=== PATIENT | male | born 1955 | race Caucasian/White ===

== ENCOUNTER 2021-05-23 15:24 | Inpatient (IN) | payer MEDICARE, OTHER ==
[~2021-05-23] VITALS: Ht 154.9 cm; Wt 54.9 kg
[2021-05-23] MEDS ORDERED: MAGNESIUM HYDROXIDE 30 ML LIQUID UDC PO PRN (17:00)
[2021-05-23] MEDS ORDERED: MAG HYDROX/AL HYDROX/SIMETH 30 ML LIQUID UDC PO PRN (17:00)
[2021-05-23] MEDS ORDERED: BLOOD SUGAR DIAGNOSTIC 1 EACH STRIP VI ONE (17:00)
[2021-05-23] MEDS ORDERED: LORAZEPAM 0.5 MG TABLET PO PRN (17:00)
[2021-05-23 17:30] VITALS: BP 134/84
[2021-05-23 20:12] VITALS: BP 125/86
[2021-05-23] MEDS: TEMAZEPAM 7.5 MG CAPSULE PO PRN (20:35)
[2021-05-23] MEDS ORDERED: HALOPERIDOL LACTATE 5 MG/1 ML VIAL IM STA (23:14)
[2021-05-23] MEDS ORDERED: diphenhydrAMINE 50 MG/1 ML VIAL IM STA (23:14)
[2021-05-23] MEDS ORDERED: LORAZEPAM 2 MG/1 ML VIAL IM STA (23:14)
[2021-05-23] MEDS ORDERED: LEVE500T9 PO (23:34)
[2021-05-23] MEDS ORDERED: LEVO150T8 PO (23:34)
[2021-05-23] MEDS ORDERED: OLAN20TA3 PO (23:34)
[2021-05-24] MEDS ORDERED: LORAZEPAM 0.5 MG TABLET PO PRN (05:00)
[2021-05-24] MEDS ORDERED: levETIRAcetam 500 MG TABLET PO SCH ×2 (05:40)
[2021-05-24] MEDS: LEVOTHYROXINE SODIUM 150 MCG TABLET PO SCH (07:39)
[2021-05-24 07:45] VITALS: BP 108/70
[2021-05-24] MEDS: LORAZEPAM 1 MG TABLET PO PRN ×3 (08:15→19:48)
[2021-05-24] MEDS: levETIRAcetam 500 MG TABLET PO SCH ×2 (08:16→20:22)
[2021-05-24 08:30] LABS: HEMATOCRIT 34.1 % (36.7-47.1); MEAN CORPUSCULAR HEMOGLOBIN 27.8 uug (23.8-33.4); MEAN CORPUSCULAR VOLUME 84.4 fL (73.0-96.2); PLATELET COUNT (AUTO) 270 K/uL (152-348)
[2021-05-24 08:39] LABS: CREATININE 0.7 mg/dL (0.6-1.3); MAGNESIUM 1.8 mg/dL (1.8-2.4); PHOSPHOROUS 4.7 mg/dL (2.5-4.9); POTASSIUM 3.8 mmol/L (3.5-5.1)
[2021-05-24 09:05] LABS: THYROID STIMULATING HORMONE 9.104 mIU/mL (0.358-3.740)
[2021-05-24] MEDS ORDERED: HALOPERIDOL LACTATE 5 MG/1 ML VIAL IM STA (09:30)
[2021-05-24] MEDS ORDERED: diphenhydrAMINE 50 MG/1 ML VIAL IM STA (09:30)
[2021-05-24] MEDS ORDERED: LORAZEPAM 2 MG/1 ML VIAL IM STA (09:30)
[2021-05-24] MEDS: ACETAMINOPHEN 325 MG TABLET PO PRN (15:16)
[2021-05-24 15:45] VITALS: BP 98/59
[2021-05-24 20:00] VITALS: BP 127/76
[2021-05-24] MEDS: BENZTROPINE MESYLATE 1 MG TABLET PO SCH (20:57)
[2021-05-24] MEDS ORDERED: HALOPERIDOL 1 MG TABLET PO SCH (21:00)
[2021-05-24] MEDS: DIVALPROEX 250 MG TABLET.DR PO SCH (21:39)
[2021-05-24] MEDS ORDERED: HALOPERIDOL 5 MG TABLET ONE (21:55)
[2021-05-24] MEDS: TEMAZEPAM 7.5 MG CAPSULE PO PRN (22:52)
[2021-05-25] MEDS: LEVOTHYROXINE SODIUM 150 MCG TABLET PO SCH (06:39)
[2021-05-25] MEDS: levETIRAcetam 500 MG TABLET PO SCH ×2 (09:15→20:27)
[2021-05-25] MEDS: DIVALPROEX 250 MG TABLET.DR PO SCH ×3 (09:15→16:19)
[2021-05-25] MEDS: LORAZEPAM 1 MG TABLET PO PRN ×2 (09:15→16:19)
[2021-05-25] MEDS: HALOPERIDOL 5 MG TABLET PO SCH ×3 (09:15→16:19)
[2021-05-25] MEDS: BENZTROPINE MESYLATE 1 MG TABLET PO SCH ×3 (09:15→16:19)
[2021-05-25] MEDS ORDERED: HALOPERIDOL LACTATE 5 MG/1 ML VIAL IM ONE (12:15)
[2021-05-25] MEDS ORDERED: diphenhydrAMINE 50 MG/1 ML VIAL IM ONE (12:15)
[2021-05-25] MEDS ORDERED: LORAZEPAM 2 MG/1 ML VIAL IM ONE (12:15)
[2021-05-25] MEDS: ACETAMINOPHEN 325 MG TABLET PO PRN (16:19)
[2021-05-25 18:00] VITALS: BP 122/72
[2021-05-25 19:09] LABS: *BILIRUBIN,URIN NEGATIVE (NEGATIVE); *BLOOD, URINE NEGATIVE (NEGATIVE); *COLOR,URINE YELLOW (YELLOW); *KETONES,URINE 2+ (NEGATIVE); *UROBILINOGEN,URINE 0.2 E.U./dl (NORMAL); LEUKOCYTE ESTERASE ,URINE TRACE (NEGATIVE); NITRITE, URINE NEGATIVE (NEGATIVE); UGLUCOSE NEGATIVE (NEGATIVE)
[2021-05-25 19:16] LABS: *CLARITY,URINE SLIGHTLY HAZY (CLEAR); RBC,URINE 0-3 /HPF (0-3)
[2021-05-25 19:17] LABS: BACTERIA,URINE NONE SEEN /HPF (NONE SEEN); SQUAMOUS EPITHELIAL CELL,UR FEW /HPF (NONE SEEN); URINE AMORPHOUS PHOSPHATES FEW /HPF
[2021-05-25 19:59] VITALS: BP 136/73
[2021-05-25] MEDS: TEMAZEPAM 7.5 MG CAPSULE PO PRN (20:27)
[2021-05-26] MEDS: LORAZEPAM 1 MG TABLET PO PRN ×2 (02:11→08:35)
[2021-05-26] MEDS: LEVOTHYROXINE SODIUM 150 MCG TABLET PO SCH (06:16)
[2021-05-26 07:30] VITALS: BP 121/73
[2021-05-26] MEDS: DIVALPROEX 250 MG TABLET.DR PO SCH ×3 (08:35→17:15)
[2021-05-26] MEDS: CLONAZEPAM 0.5 MG TABLET PO SCH ×2 (08:35→17:15)
[2021-05-26] MEDS: chlorproMAZINE 25 MG TABLET PO SCH ×3 (08:35→17:15)
[2021-05-26] MEDS: levETIRAcetam 500 MG TABLET PO SCH ×2 (08:35→21:23)
[2021-05-26 16:00] VITALS: BP 119/71
[2021-05-26] MEDS: CEphaleXIN 500 MG CAPSULE PO SCH (17:16)
[2021-05-26 20:00] VITALS: BP 116/74
[2021-05-26] MEDS: TEMAZEPAM 7.5 MG CAPSULE PO PRN (20:29)
[2021-05-27 07:30] VITALS: BP 98/60
[2021-05-27] MEDS: LORAZEPAM 1 MG TABLET PO PRN (09:27)
[2021-05-27] MEDS: chlorproMAZINE 25 MG TABLET PO SCH ×2 (09:27→18:07)
[2021-05-27] MEDS: DIVALPROEX 250 MG TABLET.DR PO SCH ×3 (09:27→18:07)
[2021-05-27] MEDS: CLONAZEPAM 0.5 MG TABLET PO SCH ×2 (09:27→18:08)
[2021-05-27] MEDS: LEVOTHYROXINE SODIUM 150 MCG TABLET PO SCH (09:28)
[2021-05-27] MEDS: CEphaleXIN 500 MG CAPSULE PO SCH ×2 (09:28→17:00)
[2021-05-27] MEDS: levETIRAcetam 500 MG TABLET PO SCH ×2 (09:30→21:17)
[2021-05-27] MEDS ORDERED: diphenhydrAMINE 50 MG/1 ML VIAL IM ONE (10:45)
[2021-05-27] MEDS ORDERED: LORAZEPAM 2 MG/1 ML VIAL IM ONE (10:45)
[2021-05-27] MEDS ORDERED: HALOPERIDOL LACTATE 5 MG/1 ML VIAL IM ONE (10:45)
[2021-05-27 16:35] VITALS: BP 120/77
[2021-05-27 20:00] VITALS: BP 83/58
[2021-05-27] MEDS: TEMAZEPAM 7.5 MG CAPSULE PO PRN (21:17)
[2021-05-28] MEDS: LEVOTHYROXINE SODIUM 150 MCG TABLET PO SCH (06:58)
[2021-05-28 07:30] VITALS: BP 111/65
[2021-05-28 07:37] LABS: THYROID STIMULATING HORMONE 8.39 mIU/mL (0.358-3.740)
[2021-05-28] MEDS: CLONAZEPAM 0.5 MG TABLET PO SCH ×2 (08:39→17:04)
[2021-05-28] MEDS: DIVALPROEX 250 MG TABLET.DR PO SCH ×3 (08:39→17:05)
[2021-05-28] MEDS: chlorproMAZINE 25 MG TABLET PO SCH ×3 (08:39→17:04)
[2021-05-28] MEDS: levETIRAcetam 500 MG TABLET PO SCH ×2 (08:39→20:02)
[2021-05-28] MEDS: CEphaleXIN 500 MG CAPSULE PO SCH ×2 (08:39→17:05)
[2021-05-28] MEDS: LORAZEPAM 1 MG TABLET PO PRN (15:22)
[2021-05-28 16:42] VITALS: BP 118/83
[2021-05-28 20:00] VITALS: BP 124/72
[2021-05-28] MEDS: TEMAZEPAM 7.5 MG CAPSULE PO PRN (21:25)
[2021-05-29] MEDS: LEVOTHYROXINE SODIUM 150 MCG TABLET PO SCH (06:08)
[2021-05-29] MEDS: chlorproMAZINE 25 MG TABLET PO SCH ×3 (08:08→17:12)
[2021-05-29] MEDS: levETIRAcetam 500 MG TABLET PO SCH ×2 (08:08→20:47)
[2021-05-29] MEDS: CEphaleXIN 500 MG CAPSULE PO SCH ×2 (08:09→17:10)
[2021-05-29] MEDS: CLONAZEPAM 0.5 MG TABLET PO SCH ×3 (08:09→17:11)
[2021-05-29] MEDS: DIVALPROEX 500 MG TABLET.DR PO SCH ×2 (08:10→20:47)
[2021-05-29 08:30] VITALS: BP 112/72
[2021-05-29] MEDS ORDERED: LORAZEPAM 2 MG/1 ML VIAL IM ONE (08:45)
[2021-05-29] MEDS ORDERED: diphenhydrAMINE 50 MG/1 ML VIAL IM ONE (08:45)
[2021-05-29] MEDS ORDERED: HALOPERIDOL LACTATE 5 MG/1 ML VIAL IM ONE (08:45)
[2021-05-29] MEDS: DIVALPROEX 250 MG TABLET.DR PO SCH (12:46)
[2021-05-29 16:18] VITALS: BP 114/78
[2021-05-29] MEDS: LORAZEPAM 1 MG TABLET PO PRN (19:31)
[2021-05-29 20:00] VITALS: BP 127/80
[2021-05-30] MEDS: LEVOTHYROXINE SODIUM 150 MCG TABLET PO SCH (06:35)
[2021-05-30] MEDS: ACETAMINOPHEN 325 MG TABLET PO PRN ×2 (07:15→16:17)
[2021-05-30] MEDS: LORAZEPAM 1 MG TABLET PO PRN ×3 (07:15→20:16)
[2021-05-30 07:45] VITALS: BP 109/77
[2021-05-30] MEDS: CEphaleXIN 500 MG CAPSULE PO SCH ×2 (08:38→17:03)
[2021-05-30] MEDS: chlorproMAZINE 25 MG TABLET PO SCH ×3 (08:38→17:02)
[2021-05-30] MEDS: DIVALPROEX 500 MG TABLET.DR PO SCH ×2 (08:38→20:07)
[2021-05-30] MEDS: levETIRAcetam 500 MG TABLET PO SCH ×2 (08:39→20:08)
[2021-05-30] MEDS: CLONAZEPAM 0.5 MG TABLET PO SCH ×3 (08:39→17:01)
[2021-05-30] MEDS: DIVALPROEX 250 MG TABLET.DR PO SCH (12:05)
[2021-05-30] MEDS ORDERED: LORAZEPAM 2 MG/1 ML VIAL IM ONE (13:15)
[2021-05-30] MEDS ORDERED: diphenhydrAMINE 50 MG/1 ML VIAL IM ONE (13:15)
[2021-05-30] MEDS ORDERED: HALOPERIDOL LACTATE 5 MG/1 ML VIAL IM ONE (13:15)
[2021-05-30 16:13] VITALS: BP 107/69
[2021-05-30 20:13] VITALS: BP 104/64
[2021-05-31] MEDS: TEMAZEPAM 7.5 MG CAPSULE PO PRN ×2 (01:55→20:26)
[2021-05-31] MEDS: LEVOTHYROXINE SODIUM 150 MCG TABLET PO SCH (06:23)
[2021-05-31] MEDS: CLONAZEPAM 0.5 MG TABLET PO SCH ×3 (09:11→16:53)
[2021-05-31] MEDS: levETIRAcetam 500 MG TABLET PO SCH ×2 (09:11→20:29)
[2021-05-31] MEDS: chlorproMAZINE 25 MG TABLET PO SCH ×3 (09:11→16:53)
[2021-05-31] MEDS: CEphaleXIN 500 MG CAPSULE PO SCH (09:12)
[2021-05-31] MEDS: DIVALPROEX 500 MG TABLET.DR PO SCH ×2 (09:12→20:25)
[2021-05-31] MEDS: ACETAMINOPHEN 325 MG TABLET PO PRN ×2 (12:08→20:25)
[2021-05-31] MEDS: LORAZEPAM 1 MG TABLET PO PRN ×2 (12:08→16:28)
[2021-05-31] MEDS: DIVALPROEX 250 MG TABLET.DR PO SCH (12:51)
[2021-05-31 16:19] VITALS: BP 110/71
[2021-05-31] MEDS ORDERED: chlorproMAZINE 25 MG TABLET PO SCH (17:00)
[2021-05-31] MEDS ORDERED: chlorproMAZINE 25 MG TABLET PO ONE (17:15)
[2021-05-31 20:00] VITALS: BP 106/68
[2021-06-01] MEDS: LORAZEPAM 1 MG TABLET PO PRN ×3 (06:48→15:20)
[2021-06-01] MEDS: LEVOTHYROXINE SODIUM 150 MCG TABLET PO SCH (06:48)
[2021-06-01] MEDS: ACETAMINOPHEN 325 MG TABLET PO PRN (06:48)
[2021-06-01 07:30] VITALS: BP 113/55
[2021-06-01] MEDS: CLONAZEPAM 0.5 MG TABLET PO SCH ×3 (08:29→17:11)
[2021-06-01] MEDS: DIVALPROEX 500 MG TABLET.DR PO SCH ×3 (08:29→17:10)
[2021-06-01] MEDS: chlorproMAZINE 25 MG TABLET PO SCH ×3 (08:29→17:10)
[2021-06-01] MEDS: levETIRAcetam 500 MG TABLET PO SCH ×2 (08:29→22:23)
[2021-06-01 16:00] VITALS: BP 122/70
[2021-06-01 20:00] VITALS: BP 119/74
[2021-06-01] MEDS: TEMAZEPAM 7.5 MG CAPSULE PO PRN (22:23)
[2021-06-02] MEDS: LEVOTHYROXINE SODIUM 150 MCG TABLET PO SCH (06:54)
[2021-06-02 07:50] VITALS: BP 98/64
[2021-06-02] MEDS: DIVALPROEX 500 MG TABLET.DR PO SCH ×3 (07:56→17:02)
[2021-06-02] MEDS: CLONAZEPAM 0.5 MG TABLET PO SCH ×3 (07:56→17:02)
[2021-06-02] MEDS: chlorproMAZINE 25 MG TABLET PO SCH ×3 (07:56→17:02)
[2021-06-02] MEDS: levETIRAcetam 500 MG TABLET PO SCH ×2 (07:57→20:04)
[2021-06-02 08:38] LABS: CREATININE 0.7 mg/dL (0.6-1.3); POTASSIUM 4.3 mmol/L (3.5-5.1)
[2021-06-02] MEDS: LORAZEPAM 1 MG TABLET PO PRN ×3 (10:02→23:28)
[2021-06-02 20:00] VITALS: BP 127/73
[2021-06-02] MEDS: TEMAZEPAM 7.5 MG CAPSULE PO PRN (20:54)
[2021-06-03] MEDS: LEVOTHYROXINE SODIUM 150 MCG TABLET PO SCH (06:30)
[2021-06-03 07:43] VITALS: BP 116/59
[2021-06-03] MEDS: DIVALPROEX 500 MG TABLET.DR PO SCH ×3 (08:45→17:55)
[2021-06-03] MEDS: chlorproMAZINE 25 MG TABLET PO SCH ×3 (08:45→17:54)
[2021-06-03] MEDS: levETIRAcetam 500 MG TABLET PO SCH ×2 (08:45→20:13)
[2021-06-03] MEDS: CLONAZEPAM 0.5 MG TABLET PO SCH ×3 (08:45→17:55)
[2021-06-03] MEDS: LORAZEPAM 1 MG TABLET PO PRN ×2 (10:15→17:55)
[2021-06-03] MEDS ORDERED: LORAZEPAM 2 MG/1 ML VIAL IM ONE (13:45)
[2021-06-03] MEDS ORDERED: chlorproMAZINE 50 MG/2 ML AMPUL IM ONE (13:45)
[2021-06-03 16:00] VITALS: BP 94/71
[2021-06-03 20:04] VITALS: BP 121/76
[2021-06-03] MEDS: OLANZAPINE 5 MG TABLET PO SCH (21:00)
[2021-06-03] MEDS: TEMAZEPAM 7.5 MG CAPSULE PO PRN (21:12)
[2021-06-04] MEDS: LEVOTHYROXINE SODIUM 150 MCG TABLET PO SCH (07:00)
[2021-06-04 08:00] VITALS: BP 107/71
[2021-06-04] MEDS ORDERED: LORAZEPAM 2 MG/1 ML VIAL IM ONE (08:45)
[2021-06-04] MEDS ORDERED: chlorproMAZINE 50 MG/2 ML AMPUL IM ONE (08:45)
[2021-06-04] MEDS: levETIRAcetam 500 MG TABLET PO SCH ×2 (09:03→20:24)
[2021-06-04] MEDS: DIVALPROEX 500 MG TABLET.DR PO SCH ×4 (09:04→20:56)
[2021-06-04] MEDS: CLONAZEPAM 0.5 MG TABLET PO SCH ×3 (09:04→17:23)
[2021-06-04] MEDS: OLANZAPINE 5 MG TABLET PO SCH ×2 (09:04→20:24)
[2021-06-04] MEDS: chlorproMAZINE 25 MG TABLET PO SCH ×3 (10:19→17:23)
[2021-06-04 15:56] VITALS: BP 120/73
[2021-06-04] MEDS: LORAZEPAM 1 MG TABLET PO PRN (20:51)
[2021-06-04 21:19] VITALS: BP 125/73
[2021-06-04] MEDS: TEMAZEPAM 7.5 MG CAPSULE PO PRN (22:17)
[2021-06-05] MEDS: LEVOTHYROXINE SODIUM 150 MCG TABLET PO SCH (06:14)
[2021-06-05] MEDS: LORAZEPAM 1 MG TABLET PO PRN ×2 (07:15→19:14)
[2021-06-05 07:30] VITALS: BP 111/82
[2021-06-05] MEDS ORDERED: OLANZAPINE 10 MG VIAL IM ONE (08:30)
[2021-06-05] MEDS ORDERED: CLONAZEPAM 0.5 MG TABLET PO SCH (09:00)
[2021-06-05] MEDS: DIVALPROEX 500 MG TABLET.DR PO SCH ×3 (09:00→19:50)
[2021-06-05] MEDS: levETIRAcetam 500 MG TABLET PO SCH ×2 (09:00→20:06)
[2021-06-05] MEDS: chlorproMAZINE 25 MG TABLET PO SCH ×3 (09:01→17:04)
[2021-06-05] MEDS: OLANZAPINE 5 MG TABLET PO SCH ×3 (09:02→17:05)
[2021-06-05] MEDS: CLONAZEPAM 1 MG TABLET PO SCH ×3 (09:07→17:05)
[2021-06-05 16:00] VITALS: BP 123/78
[2021-06-05 20:00] VITALS: BP 113/80
[2021-06-05] MEDS: TEMAZEPAM 7.5 MG CAPSULE PO PRN (21:03)
[2021-06-06] MEDS: LORAZEPAM 1 MG TABLET PO PRN ×2 (02:02→10:18)
[2021-06-06 07:30] VITALS: BP 134/72
[2021-06-06] MEDS: LEVOTHYROXINE SODIUM 150 MCG TABLET PO SCH (07:55)
[2021-06-06] MEDS: OLANZAPINE 5 MG TABLET PO SCH ×3 (08:07→16:19)
[2021-06-06] MEDS: chlorproMAZINE 25 MG TABLET PO SCH ×3 (08:07→16:18)
[2021-06-06] MEDS: DIVALPROEX 500 MG TABLET.DR PO SCH ×3 (08:08→21:36)
[2021-06-06] MEDS: levETIRAcetam 500 MG TABLET PO SCH ×2 (08:09→21:37)
[2021-06-06] MEDS: CLONAZEPAM 1 MG TABLET PO SCH ×3 (08:09→16:19)
[2021-06-06 16:00] VITALS: BP 108/65
[2021-06-06 20:43] VITALS: BP 109/66
[2021-06-06] MEDS ORDERED: OLANZAPINE 10 MG VIAL IM ONE (22:00)
[2021-06-07] MEDS: OLANZAPINE 5 MG TABLET PO SCH ×3 (09:06→17:38)
[2021-06-07] MEDS: chlorproMAZINE 25 MG TABLET PO SCH ×3 (09:06→17:38)
[2021-06-07] MEDS: DIVALPROEX 500 MG TABLET.DR PO SCH ×3 (09:06→20:18)
[2021-06-07] MEDS: CLONAZEPAM 1 MG TABLET PO SCH ×3 (09:07→17:38)
[2021-06-07] MEDS: LORAZEPAM 1 MG TABLET PO PRN ×2 (09:07→19:55)
[2021-06-07] MEDS: LEVOTHYROXINE SODIUM 150 MCG TABLET PO SCH (09:07)
[2021-06-07] MEDS: levETIRAcetam 500 MG TABLET PO SCH ×2 (09:08→20:18)
[2021-06-07] MEDS ORDERED: chlorproMAZINE 50 MG/2 ML AMPUL IM ONE (10:00)
[2021-06-07] MEDS ORDERED: LORAZEPAM 2 MG/1 ML VIAL IM ONE (10:00)
[2021-06-07 11:31] VITALS: BP 109/73
[2021-06-07 11:35] VITALS: BP 133/77
[2021-06-07 16:19] VITALS: BP 112/61
[2021-06-07] MEDS: ACETAMINOPHEN 325 MG TABLET PO PRN (19:55)
[2021-06-07] MEDS: TEMAZEPAM 7.5 MG CAPSULE PO PRN (21:09)
[2021-06-07 22:08] VITALS: BP 111/67
[2021-06-08] MEDS: LEVOTHYROXINE SODIUM 150 MCG TABLET PO SCH (06:31)
[2021-06-08] MEDS: chlorproMAZINE 25 MG TABLET PO SCH ×3 (08:26→17:50)
[2021-06-08] MEDS: CLONAZEPAM 1 MG TABLET PO SCH ×3 (08:27→17:51)
[2021-06-08] MEDS: LORAZEPAM 1 MG TABLET PO PRN ×3 (08:27→17:56)
[2021-06-08] MEDS: levETIRAcetam 500 MG TABLET PO SCH ×2 (08:27→20:54)
[2021-06-08] MEDS: DIVALPROEX 500 MG TABLET.DR PO SCH ×3 (08:27→20:54)
[2021-06-08] MEDS: LOXAPINE SUCCINATE 25 MG CAPSULE PO SCH ×3 (08:28→17:50)
[2021-06-08 09:09] VITALS: BP 115/65
[2021-06-08] MEDS ORDERED: chlorproMAZINE 50 MG/2 ML AMPUL IM ONE (11:15)
[2021-06-08] MEDS ORDERED: LORAZEPAM 2 MG/1 ML VIAL IM ONE (11:15)
[2021-06-08 15:07] VITALS: BP 118/82
[2021-06-08 20:04] VITALS: BP 124/79
[2021-06-08] MEDS: TEMAZEPAM 7.5 MG CAPSULE PO PRN (20:54)
[2021-06-09] MEDS: LEVOTHYROXINE SODIUM 150 MCG TABLET PO SCH (06:48)
[2021-06-09] MEDS ORDERED: LORAZEPAM 2 MG/1 ML VIAL IM ONE (09:45)
[2021-06-09] MEDS ORDERED: chlorproMAZINE 50 MG/2 ML AMPUL IM ONE (09:45)
[2021-06-09] MEDS: chlorproMAZINE 25 MG TABLET PO SCH ×3 (10:05→18:13)
[2021-06-09] MEDS: LOXAPINE SUCCINATE 25 MG CAPSULE PO SCH ×3 (10:05→18:13)
[2021-06-09] MEDS: DIVALPROEX 500 MG TABLET.DR PO SCH ×3 (10:05→21:17)
[2021-06-09] MEDS: CLONAZEPAM 1 MG TABLET PO SCH ×3 (10:05→18:13)
[2021-06-09] MEDS: levETIRAcetam 500 MG TABLET PO SCH ×2 (10:05→21:18)
[2021-06-09] MEDS: LORAZEPAM 1 MG TABLET PO PRN ×2 (12:51→23:49)
[2021-06-09 18:56] VITALS: BP 126/78
[2021-06-09] MEDS: TEMAZEPAM 7.5 MG CAPSULE PO PRN (21:18)
[2021-06-09 22:21] VITALS: BP 138/86
[2021-06-10] MEDS: levETIRAcetam 500 MG TABLET PO SCH (09:02)
[2021-06-10] MEDS: CLONAZEPAM 1 MG TABLET PO SCH ×2 (09:02→13:19)
[2021-06-10] MEDS: LEVOTHYROXINE SODIUM 150 MCG TABLET PO SCH (09:03)
[2021-06-10] MEDS: LOXAPINE SUCCINATE 25 MG CAPSULE PO SCH ×2 (09:03→13:19)
[2021-06-10] MEDS: DIVALPROEX 500 MG TABLET.DR PO SCH ×2 (09:03→13:19)
[2021-06-10] MEDS: chlorproMAZINE 25 MG TABLET PO SCH ×2 (09:03→13:18)
[2021-06-10] MEDS: LORAZEPAM 1 MG TABLET PO PRN (13:19)
== END 2021-06-10 19:29 | DRG 885 ==
LOC: ER 15:32 → GPS 16:26
PROVIDERS: ADMIT Psychiatry & Neurology Psychiatry; ATTEND Nurse Practitioner Acute Care
DX: F39 Unspecified mood [affective] disorder (principal); F73 Profound intellectual disabilities; N39.0 Urinary tract infection, site not specified; F29 Unspecified psychosis not due to a substance or known physiological condition; F84.0 Autistic disorder; G40.909 Epilepsy, unspecified, not intractable, without status epilepticus; G80.9 Cerebral palsy, unspecified; Z20.822 Contact with and (suspected) exposure to COVID-19
CPT/HCPCS: 36415; 70450; 80164; 83735; 84100; 84443; 85025; 87086; 97161; A4663; A6209; J1200; J1630; J2060; J2358; J3230; J3490; Q0161